=== PATIENT | male | born 1975 | race Caucasian/White ===

== ENCOUNTER 2019-11-25 17:42 | Inpatient (IN) ==
[2019-11-25] MEDS ORDERED: NS 1,000 ML IV ONE ×2 (17:57→21:05)
[2019-11-25] MEDS ORDERED: NS 500 ML IV ONE (17:57)
--- NOTE | 2019-11-25 18:04 | PROVIDER DOCUMENTATION ---
HPI-General Adult - General Chief Complaint: Weakness Stated Complaint: WEAKNESS Time Seen by Provider: 11/25/19 17:57 Source: patient, EMS Allergies/Adverse Reactions: Patient Allergies Allergy/AdvReac Type Severity Reaction Status Date / Time No Known Allergies Allergy Verified 11/25/19 18:53 Home Medications: Home Medication List Medication Instructions Recorded Confirmed Last Taken Type Unobtainable [Home Meds 11/25/19 11/25/19 Unknown History Unobtainable] - History of Present Illness -Gen Adult Nature of Presenting Problems: Patient is a 44 year old white male with history of HTN and alcohol abuse, who has been tapering himself off alcohol in past week who arrives by EMS with orthostatic hypotension since this afternoon. Patient was found on the floor at home with systolic bp in 70's complaining of inability to stand up. Denies rectal bleeding, melena, chest pain, fever, or sob. Review of Systems - Adult - REVIEW OF SYSTEMS - ADULT Constitutional: denies: chills, fever Eyes: reports: other (clear) Cardiovascular: denies: chest pain Respiratory: denies: shortness of breath Gastrointestinal: denies: abdominal pain, diarrhea, nausea, vomiting Genitourinary: denies: dysuria Musculoskeletal: reports: see HPI Integumentary: reports: see HPI Neurological: reports: see HPI Psychiatric: reports: depression Endocrine: reports: no symptoms reported Hematologic/Lymphatic: reports: no symptoms reported Allergic/Immunologic: reports: no symptoms reported Past History - Adult - PAST MEDICAL HISTORY-ADULT Review of Records: reports: Old Records Reviewed, Nursing Assessment Review, Medications Reviewed, Social history reviewed & non-contributory. Major Childhood Illnesses: reports: denies history Cardiovascular: reports: denies history Respiratory: reports: denies history Gastrointestinal: reports: denies history Genitourinary: reports: denies history Musculoskeletal: reports: denies history Neurological: reports: denies history Psychiatric: reports: anxiety Endocrine/Immune: reports: denies history - FAMILY HISTORY Family History: reviewed, not pertinent - SOCIAL HISTORY Alcohol Use Frequency: every day (quit over 1 week ago) Living Situation: family Physical Exam-General - CONSTITUTIONAL General Appearance: alert, other (dissheveled) - EYES Eyes: PERRL/EOMI, other (clear) - HEAD, EARS, NOSE, MOUTH & THROAT HENMT: normocephalic/atraumatic, other (clear) - NECK Neck: supple - RESPIRATORY Respiratory: lungs clear, no respiratory distress, no accessory muscle use - CARDIOVASCULAR Cardiovascular: regular rate, rhythm - GASTROINTESTINAL (ABDOMEN) Abdominal Exam: non tender, soft - MUSCULOSKELETAL Back Exam: no CVA tenderness, other (numerous old bruising over upper and lower back) Extremity: normal range of motion, non-tender, other (muscle atrophy) - SKIN Integumentary: warm/dry - NEUROLOGIC Neurologic: no motor/sensory deficits - PSYCHIATRIC Psych/Mental Status: oriented x 3, anxious Progress - PLAN OF CARE/RESULTS Progress/Plan/Lab Results: Vital Signs - 8 hr 11/25/19 17:46 Pulse Rate 89 Respiratory Rate 19 Blood Pressure 90/68 O2 Sat by Pulse Oximetry 100 Orders Category Date Time Status Cardiac Monitoring DIRECTED Care 11/25/19 17:59 Ordered Intake and Output-Strict ORDERED Care 11/25/19 17:57 Ordered Repeat Vital Signs .Blood Pressure Care 11/25/19 17:57 Ordered Repeat Vital Signs .Heart Rate Care 11/25/19 17:57 Ordered Repeat Vital Signs .Oxygen Saturation Care 11/25/19 17:57 Ordered Repeat Vital Signs .Respiratory Rate Care 11/25/19 17:57 Ordered Repeat Vital Signs .Temp Care 11/25/19 17:57 Ordered CHEST-PORTABLE [RAD] Stat Exams 11/25/19 18:01 Ordered ALCOHOL BLOOD Stat Lab 11/25/19 17:59 Uncollected BLOOD CULTURE [BLDCUL] Stat Lab 11/25/19 17:58 Uncollected CBC WITH ELECTRONIC DIFF [HEME] Stat Lab 11/25/19 17:58 Ordered CMP [COMPREHENSIVE METABOLIC PANEL] [CHEM] Stat Lab 11/25/19 18:02 Uncollected LACTATE, PLASMA [CHEM] Timed Lab 11/25/19 17:57 Uncollected PT [PROTIME WITH INR] [COAG] Stat Lab 11/25/19 18:00 Uncollected Stool [OCCULT BLOOD SCREENING] [STOOL] Stat Lab 11/25/19 17:59 Uncollected TROPONIN T HIGH SENSITIVITY Stat Lab 11/25/19 18:00 Uncollected TYPE & SCREEN [BBK] Stat Lab 11/25/19 17:59 Uncollected URINALYSIS W/POSS RFLX CULT [URINALYSIS] Stat Lab 11/25/19 18:00 Uncollected URINE DRUG SCREEN PL Stat Lab 11/25/19 17:58 Uncollected 0.9% Sodium Chloride Inj [Ns] 1,000 ml Med 11/25/19 17:57 Ordered IV As Directed 0.9% Sodium Chloride Inj [Ns] 500 ml Med 11/25/19 17:57 Ordered IV 999 mls/hr EKG [EKG] Stat Ther 11/25/19 17:58 Ordered Result Diagrams: 11/25/19 17:54 11/25/19 17:54 - XRAY 1 XRAY Study: Chest XRAY Interpretation: NAD - CT/MRI 1 CT Study: Abdomen, Pelvis, Thorax CT Results: NAD - CONSULTS/PCP/HOSPITALIST Notification #1 *Consult/PCP/Hospitalist*: Dr. Ortiz, hospitalist Time Discussed: 20:50 Consult Disposition: Admit Departure - Departure Date of Disposition Decision: 11/25/19 Time of Disposition Decision: 20:56 DIAGNOSIS: Hyponatremia, Volume depletion Malnutrition Qualifiers: Malnutrition type: unspecified type Qualified Code(s): E46 - Unspecified protein-calorie malnutrition Hypotension Qualifiers: Hypotension type: unspecified hypotension type Qualified Code(s): I95.9 - Hyp otension, unspecified Hypothermia Qualifiers: Encounter type: initial encounter Qualified Code(s): T68.XXXA - Hypothermia, initial encounter Contusion, back Qualifiers: Encounter type: initial encounter Laterality: unspecified laterality Qualified Code(s): S20.229A - Contusion of unspecified back wall of thorax, initial encounter Disposition: ADMITTED INPATIENT 09 Certified Medical Emergency: Emergent Condition: Stable Referrals and Follow-Ups: None,PCP [Primary Care Provider] - - Critical Care Note This patient required my direct & personal management of CC.: No Attestation - Physician/ ESE Attestation Patient care was provided by Advanced Practice Provider:: No The physician spent face to face time with patient:: Yes Advanced Practice Provider documentation review:: Supervising physician onsite and consulted in the evaluation and care of this patient. The physician did have a face to face encounter with the patient.
[2019-11-25 18:06] LABS: BASO# 0.01 X1000 (0.0-0.2); BASO% 0.2 % (0.0-0.8); HEMOGLOBIN 9.7 g/dL (14.0-18.0); IMM GRAN# 0.31 X1000 (0.0-0.04); IMM GRAN% 5.1 % (0.0-0.5); LYMPH# 1.16 X1000 (1.2-3.4); MCHC 34.6 g/dL (33-37); MCV 86.7 FL (81-99); MONO# 0.78 X1000 (0.11-0.59); MONO% 12.8 % (1.7-9.3); MPV 12.5 FL (7.4-10.4); NEUT# 3.85 X1000 (1.4-6.5); NEUT% 62.9 % (42.2-75.2); PLT 142 X1000 (130-400); RBC 3.23 XMIL (4.7-6.1); RDW 12.7 % (11.5-14.5); WBC 6.11 X1000 (4.8-10.8)
[2019-11-25 18:32] LABS: OCCULT BLOOD 1 NEGATIVE (NEGATIVE)
[2019-11-25 18:46] LABS: INR 1.16; PROTIME 15.4 Seconds (11.0-16.0)
[2019-11-25 18:47] LABS: ESTIMATED GFR > 60
--- NOTE | 2019-11-25 18:49 | Diag Imaging Result Doc PS360 ---
EXAM: CHEST-PORTABLE 11/25/2019 HISTORY: hypotension TECHNIQUE: Erect AP chest COMMENT: There is no evidence of acute cardiac or pulmonary disease. There may be COPD. IMPRESSION: No acute disease. Electronically signed by Benjamin Vazquez 11/25/2019 6:46 PM
[2019-11-25 19:01] LABS: AGAP 21; ALBUMIN 3.1 g/dL (3.5-5.0); ALKALINE PHOSPHATASE 49 U/L (32-122); BUN 18 mg/dL (8-22); CALCIUM 8.5 mg/dL (8.8-10.2); CHLORIDE 87 mmol/L (98-107); COSMO 252; GLUCOSE 148 mg/dL (70-104); GOT 33 U/L (10-34); GPT 25 U/L (10-44); POTASSIUM 3.6 mmol/L (3.5-5.1); SODIUM 123 mmol/L (136-145); TCO2 15 mmol/L (25-35); TOTAL PROTEIN 5.2 g/dL (6.3-8.3)
[2019-11-25] MEDS ORDERED: THIAMINE 100 MG in NS 50 ML IV ONE (19:10)
[2019-11-25 19:21] LABS: URINE SOURCE CLEAN CATCH
[2019-11-25 19:21] LABS: CK INDEX 2.6 (0.0-2.5); CK-MB 7.78 ng/mL (0.0-5.0)
[2019-11-25 19:31] LABS: BILIRUBIN URINE SMALL (NEGATIVE); BLOOD URINE NEGATIVE (NEGATIVE); COLOR ORANGE; GLUCOSE URINE NEGATIVE (NEGATIVE); KETONE URINE TRACE mg/dL (NEGATIVE); LEUKOCYTES URINE NEGATIVE (NEGATIVE); NITRITE URINE NEGATIVE (NEGATIVE); PROTEIN URINE TRACE mg/dL (NEGATIVE); SP GRAVITY URINE 1.023; TURBIDITY URINE HAZY (CLEAR); UROBILINOGEN URINE 3 mg/dL (NORMAL)
[2019-11-25 19:42] LABS: UR AMPHETAMINES QUAL NONE DETECTED (NONE DETECT); UR BARBITUATES QUAL NONE DETECTED (NONE DETECT); UR BENZODIAZEPIN QUAL NONE DETECTED (NONE DETECT); UR CANNABINOIDS QUAL NONE DETECTED (NONE DETECT); UR COCAINE QUAL NONE DETECTED (NONE DETECT); UR METHADONE QUAL NONE DETECTED (NONE DETECT); UR METHAMPHETAMINE QUAL NONE DETECTED (NONE DETECT); UR OPIATES QUAL NONE DETECTED (NONE DETECT); UR OXYCODONE QUAL NONE DETECTED (NONE DETECT); UR PCP QUAL NONE DETECTED (NONE DETECT); UR PROPOXYPHENE QUAL NONE DETECTED (NONE DETECT); UR TCA QUAL NONE DETECTED (NONE DETECT)
[2019-11-25 19:57] LABS: URINE WBC <10 /HPF (<10)
[2019-11-25 19:58] LABS: UR EPITHELIAL CELLS <10 /HPF (<10); URINE BACTERIA 1+ /HPF; URINE CRYSTALS CA OXALATE PRESENT; URINE SMALL ROUND CELLS NONE SEEN; URINE YEAST NONE SEEN
--- NOTE | 2019-11-25 20:19 | Diag Imaging Result Doc PS360 ---
EXAM: CT THORAX/ABD/PELVIS W/CON 11/25/2019 HISTORY: fall TECHNIQUE: This exam was performed using automated exposure control, adjustment of mA or kV according to patient size, and/or use of iterative reconstruction technique. COMMENT: There are no previous studies. Thorax: There are no filling defects the pulmonary arteries. There are no abnormal fluid collections. The aorta is normal in appearance. There is apical pleural thickening and posterior pleural nodularity of the upper lobes bilaterally. There is no evidence of pneumothorax or pleural fluid collection. There is no evidence of acute bony abnormality. ABDOMEN: The liver, spleen, adrenal glands, pancreas, and kidneys are within normal limits. The gallbladder is clear. There is a fecalith in the appendix. There is no evidence of periappendiceal inflammation. There is no evidence of bowel obstruction. The aorta is not distended and there is no evidence of significant adenopathy. Pelvis: The urinary bladder is not distended. There is no evidence of free fluid. There are scattered bone islands in the femoral heads and pelvis. There is no evidence of acute bony abnormality. IMPRESSION: No evidence of acute disease. Electronically signed by Benjamin Vazquez 11/25/2019 8:16 PM
[2019-11-25] MEDS ORDERED: M.V.I.-12 10 ML, FOLIC ACID 1 MG, MAGNESIUM SULFATE 1 GM, THIAMINE 100 MG in NS 1,000 ML IV ONE (21:01)
--- NOTE | 2019-11-25 21:47 | EKG Report ---
Test Performed on : 11/25/2019 6:28:43 PM Test Reason : pain Blood Pressure : / mmHG Vent. Rate : 067 BPM Atrial Rate : 119 BPM P-R Int : 000 ms QRS Dur : 086 ms QT Int : 478 ms P-R-T Axes : 000 081 078 degrees QTc Int : [address] & T wave abnormality, consider anterolateral ischemia Prolonged QT Abnormal ECG No previous ECGs available Unconfirmed Result
[2019-11-25 23:38] LABS: ESTIMATED GFR > 60
[2019-11-25 23:39] LABS: AGAP 17; ALBUMIN 2.2 g/dL (3.5-5.0); ALKALINE PHOSPHATASE 37 U/L (32-122); BUN 17 mg/dL (8-22); CALCIUM 7.6 mg/dL (8.8-10.2); CHLORIDE 93 mmol/L (98-107); COSMO 248; CREATININE 0.8 mg/dL (0.7-1.2); GLUCOSE 105 mg/dL (70-104); GOT 31 U/L (10-34); GPT 20 U/L (10-44); POTASSIUM 3.6 mmol/L (3.5-5.1); SODIUM 122 mmol/L (136-145); TCO2 12 mmol/L (25-35); TOTAL PROTEIN 4.5 g/dL (6.3-8.3)
[2019-11-26] MEDS ORDERED: SOLU-CORTEF IV ONE (00:10)
[2019-11-26] MEDS ORDERED: ROCEPHIN 1 GM in NS 50 ML IV ONE (00:38)
[2019-11-26] MEDS ORDERED: NS 1,000 ML IV ONE ×2 (00:39→03:00)
[2019-11-26] MEDS ORDERED: NS 500 ML IV ONE (00:39)
[2019-11-26] MEDS ORDERED: LEVOPHED 8 MG in D5 1/2 NS 250 ML IV SCH ×2 (00:45→01:15)
[2019-11-26] MEDS ORDERED: VANCOMYCIN 1 GM/NS 1 GM/250 ML IVPB IV ONE (01:17)
[2019-11-26] MEDS ORDERED: VANCOMYCIN IV PER PHARMACY MISC SCH (05:30)
[2019-11-26] MEDS ORDERED: THIAMINE 100 MG in NS 50 ML IV SCH (05:45)
[2019-11-26] MEDS ORDERED: FOLIC ACID 1 MG in NS 50 ML IV SCH (05:45)
--- NOTE | 2019-11-26 05:47 | HISTORY AND PHYSICAL ---
CHIEF COMPLAINT: Weakness. HISTORY OF PRESENT ILLNESS: Mr. Samy Marino is a 42-year-old male who has a history of hypertension as well as chronic alcoholism. He presents to the hospital because of progressive weakness. The patient is a chronic alcoholic, and his last drink was about 2 days ago. The patient describes poor appetite. He presented to the [facility] where he was found to be hypotensive, and required pressors and IV fluids. As such, he has been admitted to the intensive care unit here at [facility]. PAST MEDICAL HISTORY: His past medical history is notable for hypertension. SOCIAL HISTORY: He drinks alcohol and chews tobacco. No drug use. FAMILY HISTORY: Positive for drug use. ALLERGIES: No known drug allergies. PAST SURGICAL HISTORY: Unremarkable. MEDICATIONS: The patient takes antihypertensive medications. He does not know the name. REVIEW OF SYSTEMS: Constitutional: No fever. 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 Eyes: Blurred vision. ENT: No sinus or hearing loss. Cardiovascular: No chest pain. Respiratory: He has cough. GI: No nausea, vomiting, or abdominal pain. : No dysuria. Dermatology: No skin lesions. Hematology: No bleeding problems. Musculoskeletal: He has joint pains. Psychiatric: He has anxiety and depression. Endocrinology: No thyroid disease or diabetes. PHYSICAL EXAMINATION: VITAL SIGNS: Temperature 100.3 degrees, pulse 86, respiratory 24, blood pressure 139/93, and oxygen saturation 100%. HEENT: Atraumatic normocephalic. He is anicteric. Extraocular movements intact. No oral lesions noted. NECK: No lymphadenopathy or thyromegaly. CARDIOVASCULAR: S1, S2. RESPIRATORY: He has evidence of good air entry bilaterally. ABDOMEN: Soft. Nontender. No masses felt. EXTREMITIES: No evidence of edema. CENTRAL NERVOUS SYSTEM: No obvious focal deficit noted. LABORATORY DATA: WBC is 6.1, hematocrit 28 with a platelet count of 142,000. INR is 1.16. Sodium 122, potassium 3.6, chloride 93, bicarb 12, BUN is 17, and creatinine 0.8. Bilirubin is 2.2. Glucose 105. ASSESSMENT AND PLAN: 1. Septic shock. We will maintain patient on intravenous fluids and also pressors. We will also obtain cultures including blood and urine cultures and start patient on empiric antibiotics. 2. Hyponatremia. Maintain patient on intravenous fluids as well as fluid restriction. Check urine chemistry, cortisol level and TSH level. Closely follow up on patient's sodium level. 3. Anemia. Check iron studies, B12, and folate level. 4. Alcoholism. Maintain patient on delirium tremens prophylaxis. Check magnesium and phos level. Replace those if needed. Maintain patient on thiamine, and also folic acid as well as multivitamin. 5. Deep vein thrombosis prophylaxis. Sequential compression devices. 6. Gastrointestinal prophylaxis. Proton pump inhibitor. cc: Bill Cheney MD MTDD
[2019-11-26] MEDS: ZOSYN 3.375 GM in NS 50 ML IV SCH ×3 (06:13→17:21)
[2019-11-26] MEDS: PROTONIX IV SCH (06:13)
[2019-11-26] MEDS: SODIUM CHLORIDE 0.9% INJ SCH (06:13)
[2019-11-26] MEDS ORDERED: VANCOMYCIN 800 MG in NS 250 ML IV ONE (06:45)
[2019-11-26 08:05] LABS: BASO# 0.01 X1000 (0.0-0.2); BASO% 0.2 % (0.0-0.8); HEMATOCRIT 25.7 % (42.0-52.0); HEMOGLOBIN 8.9 g/dL (14.0-18.0); IMM GRAN# 0.14 X1000 (0.0-0.04); IMM GRAN% 2.6 % (0.0-0.5); LYMPH# 0.52 X1000 (1.2-3.4); LYMPH% 9.7 % (20.5-51.1); MCH 31.8 PG (27-31); MCHC 34.6 g/dL (33-37); MCV 91.8 FL (81-99); MONO# 0.41 X1000 (0.11-0.59); MONO% 7.6 % (1.7-9.3); MPV 13.2 FL (7.4-10.4); NEUT# 4.29 X1000 (1.4-6.5); NEUT% 79.9 % (42.2-75.2); PLT 115 X1000 (130-400); RDW 12.9 % (11.5-14.5); WBC 5.37 X1000 (4.8-10.8)
--- NOTE | 2019-11-26 08:57 | PROGRESS NOTE ---
DATE: 11/26/2019 SUBJECTIVE: This patient is completely awake. He is oriented. As per the patient, he has been drinking. He is an alcoholic, and he states that he was lying on the floor and he actually ended up spending the night on the floor before coming to the hospital. He has been 3 times in a rehab center and a couple of times as an outpatient. He is willing to stop it, but it has been difficult for him. As per the patient, on the other hand, he is adopted, and he just found out that he has a family history of alcohol abuse and drug use. He seems to be stable, but he is having generalized shakiness. He has been placed on Librium, which I will continue, but I will increase the frequency. I will also add Ativan as needed for agitation and/or withdrawal symptoms. I will continue with his banana bag. Blood culture negative. Blood pressure has been stable, on the low side though. OBJECTIVE: Vital Signs: Temperature 100.3 at 3:30 a.m., pulse 76, respiratory rate 110/64, oxygen saturation 97% on room air. HEENT: Head normocephalic. No trauma. PERRLA. Neck: Supple no JVD. No masses. Central trachea. Chest: Clear to auscultation. No wheezing. No rales. Abdomen: Soft. Some tenderness to palpation at the level of the epigastric area. Extremities: No edema, no clubbing, no cyanosis. He has multiple bruises, mostly at the level of the lower extremities. Neurological: The patient is sleepy but arousable. He is answering my questions. He is oriented. He is following commands. He does have generalized tremors, especially upper extremities. LABORATORY: WBC 5.3, hemoglobin 8.9, hematocrit 25.7, platelets 115,000. Pending CMP. ASSESSMENT AND PLAN: 1. Initially admitted due to septic shock, but I do not have any source of infection. He is not on pressors. I will continue intravenous fluids, and I will keep this patient on intravenous antibiotics for 1 more day to see how he does. Blood culture so far negative. Chest, abdomen, and pelvis CT scan negative for any acute process. I checked his skin, and I did not see any source of infection, but he does have small lesions, red lesions, but no secretion, and multiple bruises. I will monitor for now. I do believe everything is related to alcohol abuse. 2. Hyponatremia, probably this is chronic. We will get a TSH tomorrow. I will continue with fluid resuscitation. I will continue also with a banana bag. 3. Alcohol abuse/alcoholism. Continue with a banana bag on a daily basis. Continue with Librium, which I have increased the dose from 3 times a day to 4 times a day. I will add Ativan as needed as well. I do believe he can eat. He has been placed on a regular diet. 4. Anemia. We will do the anemia workup. 5. Deep vein thrombosis prophylaxis with sequential compression devices. 6. Hyponatremia, probably this is chronic. Continue with fluid resuscitation. 7. Mild rhabdomyolysis, likely because he was dehydrated. I will check a new CK level in the morning. As per the patient, he spent the whole night and probably more than that on the floor prior to admission. He has multiple bruises as well. 8. Protein-calorie malnutrition, moderate to severe. We will continue with his diet. CRITICAL CARE TIME: 35 minutes. cc: Gilbert Thomson MD
[2019-11-26] MEDS ORDERED: M.V.I.-12 10 ML, FOLIC ACID 1 MG, MAGNESIUM SULFATE 1 GM, THIAMINE 100 MG in NS 1,000 ML IV SCH (09:00)
[2019-11-26] MEDS ORDERED: LIBRIUM PO SCH ×2 (09:00)
[2019-11-26] MEDS: LIBRIUM PO SCH ×3 (09:08→23:37)
[2019-11-26] MEDS: M.V.I.-12 10 ML, FOLIC ACID 1 MG, MAGNESIUM SULFATE 1 GM, THIAMINE 100 MG in NS 1,000 ML IV SCH (09:08)
[2019-11-26 09:35] LABS: ESTIMATED GFR > 60
[2019-11-26 09:53] LABS: AGAP 18; ALBUMIN 2.4 g/dL (3.5-5.0); ALKALINE PHOSPHATASE 38 U/L (32-122); BUN 14 mg/dL (8-22); CALCIUM 7.6 mg/dL (8.8-10.2); CHLORIDE 96 mmol/L (98-107); COSMO 254; GLUCOSE 106 mg/dL (70-104); GOT 33 U/L (10-34); GPT 21 U/L (10-44); POTASSIUM 3.9 mmol/L (3.5-5.1); SODIUM 126 mmol/L (136-145); TCO2 12 mmol/L (25-35); TOTAL BILIRUBIN 2.12 mg/dL (0.20-1.00); TOTAL PROTEIN 4.8 g/dL (6.3-8.3)
[2019-11-26 10:07] LABS: BANDS 6 % (0-1); LARGE PLATELETS 1+; LYMPHS 4 % (21-51); MONO 2 % (1-9); SEGS 86 % (42-75)
[2019-11-26] MEDS: VANCOMYCIN 900 MG in NS 250 ML IV SCH (14:15)
--- NOTE | 2019-11-26 17:05 | Diag Imaging Result Doc PS360 ---
EXAM: US GB < RUQ (LIMITED) INDICATION: alcohol abuse COMPARISON: None. 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 It is possibly contracted. The common bile duct is normal in diameter. The liver is grossly normal in echotexture. No discrete hepatic mass is identified. The pancreas is obscured. The aorta and IVC are grossly unremarkable. The right kidney is grossly unremarkable. IMPRESSION: Nonvisualization of the gallbladder, likely contracted. Unremarkable right upper quadrant ultrasound, otherwise. Electronically signed by Hayes Tran 11/26/2019 5:03 PM
[2019-11-26] MEDS: ATIVAN IV PRN (17:41)
[2019-11-26] MEDS: NS 1,000 ML IV SCH (19:22)
[2019-11-26] MEDS: LEVOPHED 8 MG in D5 1/2 NS 250 ML IV SCH (21:13)
[2019-11-26 23:36] LABS: URINE SOURCE CATH
[2019-11-26 23:55] LABS: BILIRUBIN URINE NEGATIVE (NEGATIVE); BLOOD URINE NEGATIVE (NEGATIVE); COLOR YELLOW; GLUCOSE URINE NEGATIVE (NEGATIVE); KETONE URINE 10 mg/dL (NEGATIVE); LEUKOCYTES URINE NEGATIVE (NEGATIVE); NITRITE URINE NEGATIVE (NEGATIVE); PROTEIN URINE NEGATIVE (NEGATIVE); SP GRAVITY URINE 1.027; TURBIDITY URINE CLEAR (CLEAR); UROBILINOGEN URINE NORMAL (NORMAL)
[2019-11-27] MEDS: ZOSYN 3.375 GM in NS 50 ML IV SCH ×5 (00:03→23:20)
[2019-11-27 00:09] LABS: UR EPITHELIAL CELLS <10 /HPF (<10); URINE BACTERIA NEGATIVE /HPF; URINE RBC <10 /HPF (<10); URINE WBC <10 /HPF (<10)
[2019-11-27] MEDS: VANCOMYCIN 900 MG in NS 250 ML IV SCH ×2 (02:18→14:18)
[2019-11-27] MEDS: LIBRIUM PO SCH ×4 (02:30→20:20)
[2019-11-27] MEDS: PROTONIX IV SCH (04:45)
[2019-11-27] MEDS: NS 1,000 ML IV SCH ×2 (04:45→14:14)
[2019-11-27] MEDS: SODIUM CHLORIDE 0.9% INJ SCH (04:45)
--- NOTE | 2019-11-27 07:39 | PROGRESS NOTE ---
DATE: 11/27/2019 SUBJECTIVE: The patient is sleepy, but arousable. As per the nurse, he was really lethargic during the night, but he seems to be waking up a little bit better today. He was able to say his name, date of . He was oriented to place and time, but he is really sleepy. He has been placed on a diet, but he seems to be eating just a little a little bit of it. I will continue with that. Pending laboratory at this moment. During the night his blood pressure dropped to the 70s and 80s, so he was placed on vasopressors, which I will continue. OBJECTIVE: Vital Signs: Temperature 98.9 degrees, respiratory rate 20, blood pressure 113/71, oxygen saturation 94% on room air. HEENT: Head normocephalic, no trauma. PERRLA. Neck: Supple no JVD. No masses. Central trachea. Chest: Clear to auscultation. No wheezing. No rales. Abdomen: Soft. Some tenderness to palpation at the level of the epigastric area and right upper quadrant. Extremities: No edema, no clubbing, no cyanosis. He has multiple bruises, mostly at the level of the lower extremities. Neurological: The patient is sleepy, but arousable. He is answering most of my questions. He is oriented. He is following commands, but he is really sleepy, and as per the nurse's report he was really lethargic during the night. He does have generalized tremors, especially the upper extremities. LABORATORY: Pending lab work at this moment. ASSESSMENT AND PLAN: 1. Admitted due to septic shock. He has been placed on vasopressors during the night, even though I do not have a clear source of infection. I will continue with antibiotics. Blood cultures are negative so far. Influenza A and B are negative. Chest, abdomen, and pelvis CT scan did not show any evidence of acute disease. I will continue to monitor this patient in the intensive care unit. I will continue with intravenous fluid fluids, pending lab work. 2. Hyponatremia. Probably this is chronic. Pending TSH. Continue with intravenous fluids. Continue with also banana bag. 3. Alcohol abuse, alcoholism. Continue with banana bag on a daily basis. Continue with Librium 4 times a day and Ativan as needed. He has generalized tremors, mostly at the level of the upper extremities. He seems to be sleepy, but arousable. 4. Deep vein thrombosis prophylaxis with sequential compression devices. 5. Mild rhabdomyolysis, likely due to dehydration. Also, he has multiple bruises at the level of the lower extremities, so it could be multifactorial. For now, we will continue with intravenous fluids, and I will wait for the for the lab work results. 6. Protein-calorie malnutrition, moderate to severe. We will continue with his diet. CRITICAL CARE TIME: 35 minutes. cc: Gilbert Thomson MD
[2019-11-27 08:02] LABS: EOS# 0.01 X1000 (0.0-0.7); EOS% 0.2 % (0.0-10.0); HEMATOCRIT 21.4 % (42.0-52.0); IMM GRAN# 0.13 X1000 (0.0-0.04); IMM GRAN% 2.8 % (0.0-0.5); LYMPH# 0.93 X1000 (1.2-3.4); LYMPH% 20.2 % (20.5-51.1); MCH 30.7 PG (27-31); MCHC 32.7 g/dL (33-37); MCV 93.9 FL (81-99); MONO# 0.39 X1000 (0.11-0.59); MONO% 8.5 % (1.7-9.3); MPV 12.7 FL (7.4-10.4); NEUT# 3.15 X1000 (1.4-6.5); NEUT% 68.3 % (42.2-75.2); PLT 94 X1000 (130-400); RBC 2.28 XMIL (4.7-6.1); RDW 13.1 % (11.5-14.5); WBC 4.61 X1000 (4.8-10.8)
[2019-11-27 08:04] LABS: AGAP 9; ALB/GLOB RATIO 1.1; ALKALINE PHOSPHATASE 35 U/L (32-122); BUN 6 mg/dL (8-22); CALCIUM 7.1 mg/dL (8.8-10.2); CHLORIDE 106 mmol/L (98-107); CK PROFILE 163 U/L (24-204); COSMO 265; CREATININE 0.8 mg/dL (0.7-1.2); ESTIMATED GFR > 60; GLUCOSE 115 mg/dL (70-104); GOT 43 U/L (10-34); GPT 26 U/L (10-44); POTASSIUM 2.9 mmol/L (3.5-5.1); SODIUM 133 mmol/L (136-145); TCO2 18 mmol/L (25-35); TOTAL BILIRUBIN 1.57 mg/dL (0.20-1.00); TOTAL PROTEIN 3.9 g/dL (6.3-8.3)
[2019-11-27 08:45] LABS: FERRITIN 366 ng/mL (30-400)
[2019-11-27 08:53] LABS: PHOSPHORUS 2.6 mg/dL (2.7-4.5)
[2019-11-27] MEDS: KLOR-CON PO SCH ×2 (09:06→20:19)
[2019-11-27] MEDS: M.V.I.-12 10 ML, FOLIC ACID 1 MG, MAGNESIUM SULFATE 1 GM, THIAMINE 100 MG in NS 1,000 ML IV SCH (09:06)
[2019-11-27] MEDS: LEVOPHED 8 MG in D5 1/2 NS 250 ML IV SCH (22:57)
[2019-11-28] MEDS: LIBRIUM PO SCH ×4 (02:57→19:36)
[2019-11-28 03:17] LABS: INR 1.25; PROTIME 15.9 Seconds (11.0-16.0)
[2019-11-28 03:18] LABS: PTT 31.4 Seconds (22.3-41.8)
[2019-11-28 03:22] LABS: BASO# 0.01 X1000 (0.0-0.2); BASO% 0.3 % (0.0-0.8); EOS# 0.01 X1000 (0.0-0.7); EOS% 0.3 % (0.0-10.0); HEMATOCRIT 21.6 % (42.0-52.0); HEMOGLOBIN 6.8 g/dL (14.0-18.0); IMM GRAN# 0.11 X1000 (0.0-0.04); IMM GRAN% 3.4 % (0.0-0.5); LYMPH# 1.07 X1000 (1.2-3.4); LYMPH% 33.4 % (20.5-51.1); MCH 30.2 PG (27-31); MCHC 31.5 g/dL (33-37); MONO# 0.24 X1000 (0.11-0.59); MONO% 7.5 % (1.7-9.3); MPV 11.7 FL (7.4-10.4); NEUT# 1.76 X1000 (1.4-6.5); NEUT% 55.1 % (42.2-75.2); PLT 101 X1000 (130-400); RBC 2.25 XMIL (4.7-6.1); RDW 13.6 % (11.5-14.5)
[2019-11-28 04:08] LABS: AGAP 9; ALB/GLOB RATIO 1.3; ALKALINE PHOSPHATASE 38 U/L (32-122); BUN 3 mg/dL (8-22); CHLORIDE 109 mmol/L (98-107); CK PROFILE 122 U/L (24-204); COSMO 270; CREATININE 0.7 mg/dL (0.7-1.2); ESTIMATED GFR > 60; GLUCOSE 124 mg/dL (70-104); GOT 39 U/L (10-34); GPT 25 U/L (10-44); MAGNESIUM 1.9 mg/dL (1.5-2.7); PHOSPHORUS 1.9 mg/dL (2.7-4.5); POTASSIUM 3.6 mmol/L (3.5-5.1); SODIUM 136 mmol/L (136-145); TCO2 18 mmol/L (25-35); TOTAL PROTEIN 3.6 g/dL (6.3-8.3)
[2019-11-28 04:15] LABS: CALCIUM 6.8 mg/dL (8.8-10.2)
[2019-11-28] MEDS ORDERED: CALCIUM GLUCONATE 1 GM in NS 50 ML IV ONE (04:32)
[2019-11-28] MEDS ORDERED: VANCOMYCIN 1,200 MG in NS 250 ML IV SCH (05:00)
[2019-11-28] MEDS: PROTONIX IV SCH (05:34)
[2019-11-28] MEDS: NS 1,000 ML IV SCH ×4 (05:34→19:36)
[2019-11-28] MEDS: ZOSYN 3.375 GM in NS 50 ML IV SCH (05:43)
[2019-11-28] MEDS ORDERED: NS 500 ML IV ONE (06:57)
[2019-11-28] MEDS ORDERED: POTASSIUM PHOSPHATE 21 MMOL in NS 250 ML IV ONE (06:58)
--- NOTE | 2019-11-28 08:34 | PROGRESS NOTE ---
DATE: 11/28/2019 SUBJECTIVE: This patient seems to be much better today. He is awake. He is oriented x3. He is still having generalized tremors, mostly at the level of the upper extremities, but he does not feel that he is going to withdraw today. Yesterday though he was having some withdrawal symptoms, and he was more sleepy, and apparently, he was lethargic during the night. I think he is doing better. His hemoglobin dropped to 6.8, and I will give him 1 unit of PRBC. This has been discussed with the patient. I will replace his electrolytes as well. I will ask Physical Therapy and Occupational Therapy to evaluate this patient. Probably, this patient needs to go to a detox center if he agrees with that, but in the meantime, I will continue with Librium and Ativan as needed, as well as the banana bag on a daily basis. I will continue also with the IV fluids for now. I will stop the antibiotics. I do not have any source of infection. OBJECTIVE: Vital Signs: Temperature 99.3 degrees, pulse 91, respiratory rate 11, blood pressure 99/66, oxygen saturation 100% on room air. HEENT: Head normocephalic, no trauma, PERRLA. Neck: Supple. No JVD. No masses. Central trachea. Chest: Clear to auscultation. No wheezing. No rales. Abdomen: Soft. Some tenderness to palpation at the level of the epigastric area and right upper quadrant. Extremities: No edema, no clubbing, no cyanosis. He has multiple bruises mostly at the level of the lower extremities. Neurological: The patient is awake, alert. He is answering my questions. He has generalized tremors, but mostly at the level of the upper extremities. LABORATORY: WBC 3.2, hemoglobin 6.8, hematocrit 25.6, platelets 101,000. Sodium 136, potassium 3.6, chloride 109, bicarbonate 18, BUN 3, creatinine 0.7, glucose 124, calcium 6.8, phosphorus 1.9, magnesium 1.9, albumin 2. ASSESSMENT AND PLAN: 1. Admitted for possible septic shock, and he was placed on vasopressors. I believe he was severely dehydrated. I do not have any source of infection. I have stopped the antibiotics. Chest x-ray, CT of the abdomen and pelvis are negative. Influenza A and B are negative. I will continue with intravenous fluids and I will transfer this patient to the floor. 2. Likely severe dehydration with orthostatic hypotension. Apparently, this patient was found on the floor at home and the systolic blood pressure was in the 70s with inability to stand up. I do not think this patient was having a sepsis or septic shock. I do believe this is a combination off alcohol abuse and dehydration. We will monitor. He seems to be better, but he needs to stop drinking completely. 3. Hyponatremia, resolved, likely due to severe dehydration. 4. Electrolyte imbalance including hypokalemia and hypophosphatemia. Potassium level is normal today. I will replace the phosphorus. I will keep an eye on the calcium. 5. Anemia, which I believe is multifactorial due to folic deficiency, nutritional. I will give him 1 unit of packed red blood cells today since his hemoglobin is 6.8. 6. Alcohol abuse. This patient has been highly advised against alcohol use. I will continue with daily cessation education. I will continue with Librium, as well as Ativan as needed. He is still having generalized tremors, but I believe he is not having strong signs and symptoms of withdrawal today. 7. Deep vein thrombosis prophylaxis with sequential compression devices. 8. Mild rhabdomyolysis, resolved. 9. Protein-calorie malnutrition, moderate to severe. Continue with the same diet. 10. Generalized weakness and physical deconditioning, probably this is chronic, likely alcohol related. I already asked for Physical Therapy and Occupational Therapy evaluation. cc: Gilbert Thomson MD
[2019-11-28] MEDS: M.V.I.-12 10 ML, FOLIC ACID 1 MG, MAGNESIUM SULFATE 1 GM, THIAMINE 100 MG in NS 1,000 ML IV SCH (09:50)
[2019-11-29] MEDS: LIBRIUM PO SCH ×4 (02:14→23:38)
[2019-11-29] MEDS: SODIUM CHLORIDE 0.9% INJ SCH (06:18)
[2019-11-29] MEDS: NS 1,000 ML IV SCH (06:18)
[2019-11-29] MEDS: PROTONIX IV SCH (06:18)
[2019-11-29 06:39] LABS: BASO# 0.01 X1000 (0.0-0.2); BASO% 0.3 % (0.0-0.8); EOS# 0.02 X1000 (0.0-0.7); EOS% 0.7 % (0.0-10.0); HEMATOCRIT 26.9 % (42.0-52.0); HEMOGLOBIN 8.5 g/dL (14.0-18.0); IMM GRAN# 0.08 X1000 (0.0-0.04); IMM GRAN% 2.8 % (0.0-0.5); LYMPH# 0.96 X1000 (1.2-3.4); LYMPH% 33.4 % (20.5-51.1); MCH 30.4 PG (27-31); MCHC 31.6 g/dL (33-37); MCV 96.1 FL (81-99); MONO% 10.5 % (1.7-9.3); MPV 11.9 FL (7.4-10.4); NEUT% 52.3 % (42.2-75.2); PLT 111 X1000 (130-400); RDW 14.4 % (11.5-14.5); WBC 2.87 X1000 (4.8-10.8)
[2019-11-29 07:19] LABS: AGAP 3; ALBUMIN 2.2 g/dL (3.5-5.0); ALKALINE PHOSPHATASE 71 U/L (32-122); BUN 5 mg/dL (8-22); CALCIUM 7.3 mg/dL (8.8-10.2); CHLORIDE 108 mmol/L (98-107); COSMO 270; CREATININE 0.7 mg/dL (0.7-1.2); ESTIMATED GFR > 60; GLUCOSE 87 mg/dL (70-104); GOT 47 U/L (10-34); GPT 33 U/L (10-44); MAGNESIUM 1.8 mg/dL (1.5-2.7); PHOSPHORUS 2.5 mg/dL (2.7-4.5); POTASSIUM 3.5 mmol/L (3.5-5.1); SODIUM 137 mmol/L (136-145); TCO2 26 mmol/L (25-35); TOTAL BILIRUBIN 1.72 mg/dL (0.20-1.00); TOTAL PROTEIN 4.3 g/dL (6.3-8.3)
[2019-11-29] MEDS: FOLIC ACID PO SCH ×2 (08:25→20:15)
[2019-11-29] MEDS: VITAMIN B-1 PO SCH (08:26)
--- NOTE | 2019-11-29 09:37 | PROGRESS NOTE ---
DATE: 11/29/2019 SUBJECTIVE: This patient is resting comfortably in bed. He is not confused today. He received 1 unit of PRBC yesterday and the hemoglobin improved from 6.8 to 8.5. Blood pressure has been stable, the last one documented is 127/86. I will stop actually his IV fluids since he is hydrated and the kidney function is stable. The CK level normalized, so the rhabdomyolysis is completely resolved. I will continue monitoring his electrolytes. Phosphorus is slightly decreased, so I will monitor for now. I will remove the Olmos catheter and I have requested Physical Therapy and Occupational Therapy to evaluate this patient. On the other hand, I will stop the banana bag and continue with folic acid and thiamine by mouth. OBJECTIVE: Vital Signs: Temperature 98.9 degrees, pulse 82, respiratory rate 13, blood pressure 127/86, oxygen saturation 98 on room air. HEENT: Head normocephalic, no trauma. PERRLA. Neck: Supple. No JVD. No masses. Central trachea. Chest: Clear to auscultation. No wheezing. No rales. Abdomen: Soft. Some tenderness to palpation at the level of the epigastric area and right upper quadrant. Extremities: No edema. No clubbing. No cyanosis. He has multiple bruises, mostly at the level of the lower extremities. Neurological: The patient is awake, he is alert. He is answering my questions. He is still having some generalized tremors, but they seem to be better compared with yesterday. LABORATORY DATA: WBC 2.8, hemoglobin 8.5, hematocrit 26.9, platelets 111,000. Sodium 135, potassium 3.5, chloride 108, bicarbonate 26, BUN 5, creatinine 0.7, glucose 87, calcium 7.3. Magnesium 1.8, phosphorus 2.5. ASSESSMENT AND PLAN: 1. Admitted initially for possible septic shock, but I do not really have a source of infection. For me, this was more related to hypovolemic shock due to severe dehydration. I already stopped the antibiotics. His chest x-ray, CT of the abdomen and pelvis are negative. Influenza A and B are negative as well. His blood pressure normalized. He is not longer dehydrated. He is tolerating p.o. 2. Severe dehydration, with orthostatic hypotension as per #1 initially. Apparently this patient was found on the floor at home and his systolic blood pressure was in the 70s with inability to stand up. 3. Hyponatremia, resolved. Likely due to severe dehydration. 4. Electrolyte abnormality. We will monitor. 5. Anemia, multifactorial, mostly nutritional. Continue to replace the folic acid. He received 1 unit of PRBC yesterday and the hemoglobin improved from 6.8 to 8.5. 6. Alcohol use and abuse. This patient is an alcoholic and he has been having this kind of problem for a very long time. This patient has been highly advised against alcohol use. I had a meeting with the family yesterday and we talked about a possible plan for discharge. I have been talking also to the patient about rehab center versus detox center. Yesterday he told the social work instructor that he wanted to go home but today I talked to him and he seems to understand that he needs to go for rehab, and then he probably needs to go to a place to take care of his drinking problems. 7. Deep vein thrombosis prophylaxis with sequential compression devices. 8. Mild rhabdomyolysis, resolved. 9. Protein calorie malnutrition, moderate to severe. Continue with the same diet. He is tolerating diet really good. 10. Generalized weakness and with physical deconditioning. Likely this is chronic and likely is related to alcohol use. Physical Therapy and Occupational Therapy on board. He has been having probably multiple falls at home. cc: Gilbert Thomson MD
[2019-11-30] MEDS: PROTONIX IV SCH (04:48)
[2019-11-30 05:43] LABS: HEMATOCRIT 26.9 % (42.0-52.0); HEMOGLOBIN 8.6 g/dL (14.0-18.0); MCH 30.9 PG (27-31); MCV 96.8 FL (81-99); MPV 11.5 FL (7.4-10.4); RBC 2.78 XMIL (4.7-6.1); RDW 14.5 % (11.5-14.5); WBC 3.67 X1000 (4.8-10.8)
[2019-11-30 06:11] LABS: AGAP 9; BUN 6 mg/dL (8-22); CALCIUM 8.3 mg/dL (8.8-10.2); CHLORIDE 103 mmol/L (98-107); COSMO 269; CREATININE 0.7 mg/dL (0.7-1.2); ESTIMATED GFR > 60; GLUCOSE 91 mg/dL (70-104); MAGNESIUM 1.5 mg/dL (1.5-2.7); POTASSIUM 3.6 mmol/L (3.5-5.1); SODIUM 136 mmol/L (136-145); TCO2 24 mmol/L (25-35)
[2019-11-30] MEDS ORDERED: MAGNESIUM SULFATE 2 GM/S.W.I. 2 GM/50 ML IVPB IV ONE (06:56)
[2019-11-30] MEDS: VITAMIN B-1 PO SCH (08:30)
[2019-11-30] MEDS: FOLIC ACID PO SCH ×2 (08:30→20:36)
[2019-11-30] MEDS: LIBRIUM PO SCH ×2 (08:34→20:36)
--- NOTE | 2019-11-30 10:22 | PROGRESS NOTE ---
DATE: 11/30/2019 SUBJECTIVE: The patient is resting comfortably in bed. He is not confused. His hemoglobin has been stable after 1 PRBC. He is still having upper extremity shakiness. His magnesium is slightly low, I will replace it. I will decrease the Librium from 3 times a day to twice a day and I will monitor, but he seems to be getting better. Physical Therapy working on this patient. OBJECTIVE: Vital signs: Temperature 97.5 degrees, pulse 93, respiratory rate 18, blood pressure 107/56, oxygen saturation 100% on room air. HEENT: Head normocephalic, no trauma. PERRLA. Neck: Supple. No JVD. No masses. Central trachea. Chest: Clear to auscultation. No wheezing. No rales. Abdomen: Soft. Some tenderness to palpation at the level of the epigastric area and right upper quadrant. Extremities: No edema, no clubbing, no cyanosis. He has multiple bruises, mostly at the level of the lower extremities. Neurological: The patient is awake, he is oriented, his answers are slow. He is still having generalized tremors, mostly at the level of the upper extremities. He is eating fine. LABORATORY DATA: WBC 3.6, hemoglobin 8.6, hematocrit 26.9, platelets 129,000. Sodium 136, potassium 3.6, chloride 103, bicarbonate 24, BUN 6, creatinine 0.7, glucose 91, calcium 8.3. Magnesium 1.5, phosphorus 3. ASSESSMENT AND PLAN: 1. Hypovolemic shock on presentation due to severe dehydration. Initially he was placed on antibiotics which I have already stopped. His chest x-ray, CT abdomen and pelvis are negative. Influenza A and B and negative as well. Blood pressures is stable. We will monitor for now. 2. Severe dehydration with orthostatic hypotension, as per #1. Apparently this patient was found on the floor at home and his systolic blood pressure was in the 70s with inability to stand up. 3. Hyponatremia, resolved. 4. Electrolyte abnormalities. We will monitor. I will replace today the magnesium. 5. Anemia, multifactorial, mostly nutritional. I will continue with folic acid. He is eating really good. He is status post 1 packed red blood cells. 6. Alcohol use and abuse. This patient has been highly advised against alcohol use. I will continue with daily cessation education. I offered him multiple possibilities including rehab center and detox center and actually I had a conversation with the family and they are willing to take him to a detox and/or rehab center and even to home with them, I believe [place], but today I had a large conversation with the patient and he states that he does not want to go to a rehab center and probably the family is going to be disappointed, but this is not the plan that he has. 7. Deep vein thrombosis prophylaxis with sequential compression devices. 8. Mild rhabdomyolysis, resolved. 9. Protein calorie malnutrition, moderate to severe. Continue with same diet. He is eating really good. 10. Generalized weakness and physical deconditioning, likely chronic and likely related to alcohol use. Physical Therapy and Occupational Therapy working on this patient. cc: Gilbert Thomson MD
[2019-12-01] MEDS: PROTONIX IV SCH (04:51)
[2019-12-01] MEDS: SODIUM CHLORIDE 0.9% INJ SCH (04:51)
[2019-12-01 05:46] LABS: HEMATOCRIT 26.4 % (42.0-52.0); HEMOGLOBIN 8.4 g/dL (14.0-18.0)
[2019-12-01 06:06] LABS: MAGNESIUM 1.7 mg/dL (1.5-2.7); PHOSPHORUS 3.7 mg/dL (2.7-4.5)
[2019-12-01 06:12] LABS: AGAP 10; ALBUMIN 2.2 g/dL (3.5-5.0); ALKALINE PHOSPHATASE 55 U/L (32-122); BUN 8 mg/dL (8-22); CALCIUM 8.3 mg/dL (8.8-10.2); CHLORIDE 101 mmol/L (98-107); COSMO 272; CREATININE 0.6 mg/dL (0.7-1.2); ESTIMATED GFR > 60; GLUCOSE 104 mg/dL (70-104); GOT 23 U/L (10-34); GPT 21 U/L (10-44); POTASSIUM 3.4 mmol/L (3.5-5.1); SODIUM 137 mmol/L (136-145); TCO2 26 mmol/L (25-35); TOTAL PROTEIN 4.4 g/dL (6.3-8.3)
[2019-12-01] MEDS ORDERED: KLOR-CON PO ONE (06:50)
[2019-12-01] MEDS: LIBRIUM PO SCH ×2 (08:22→20:09)
[2019-12-01] MEDS: VITAMIN B-1 PO SCH (08:22)
[2019-12-01] MEDS: FOLIC ACID PO SCH ×2 (08:22→20:09)
--- NOTE | 2019-12-01 11:27 | PROGRESS NOTE ---
DATE: 12/01/2019 SUBJECTIVE: This patient is resting comfortably in bed. He does have severe generalized weakness. He needs always assistance to be able to sit up and get up. He is still having generalized tremors. Hemoglobin has been stable. The potassium is a little bit low. I will replace it. I will continue with the same amount of Librium today. OBJECTIVE: Vital Signs: Temperature 98.2, pulse 95, respiratory rate 17, blood pressure 129/87, oxygen saturation 100% on room air. HEENT: Head normocephalic. No trauma. PERRLA. Neck: Supple. No JVD. No masses. Central trachea. Chest: Clear to auscultation. No wheezing. No rales. Abdomen: Soft. He does have some tenderness to palpation at the level of the epigastric area and right upper quadrant. Extremities: No edema. No clubbing. No cyanosis. He has multiple bruises, mostly at the level of the lower extremities. Neurological: The patient is awake, alert. He is answering my questions, but slow. He is still having generalized tremors, mostly at the level of the upper extremities. He is tolerating p.o. LABORATORY: Hemoglobin 8.4, hematocrit 26.4. Sodium 137, potassium 3.4, chloride 101, bicarbonate 26, BUN 8, creatinine 0.6, glucose 104, calcium 8.3, phosphorus 3.7, magnesium 1.7, albumin 2.2. ASSESSMENT AND PLAN: 1. Hypovolemic shock on presentation due to severe dehydration. Initially he was placed on antibiotics, which I have already stopped. His chest x-ray and CT abdomen and pelvis are negative. Influenza A and B are negative as well. Blood pressure is stable. We will monitor for now. Apparently he was found on the floor at home with a systolic blood pressure in the 70s with inability to stand up. 2. Hyponatremia, resolved. 3. Electrolyte abnormalities, I will continue to replace, especially today the potassium. 4. Anemia, multifactorial, mostly nutritional. I will continue with folic acid. He is eating really good. He is status post unit of 1 packed red blood cells. 5. Alcohol use and abuse. This patient has been highly advised against alcohol use. I will continue with daily cessation education. He does have good family support, and they will need to take him to any rehab center and/or place that specializes in alcohol, but the patient has been refusing, even though he cannot sit up or stand up by himself. 6. Deep vein thrombosis prophylaxis with sequential compression devices. 7. Mild rhabdomyolysis, resolved. 8. Protein calorie malnutrition, moderate to severe. Continue with same diet. The patient is eating good. Likely, this is the result of alcohol abuse for years. 9. Generalized weakness and physical deconditioning, likely chronic, likely related to alcohol use. Physical therapy and occupational therapy working on this patient. He is still having generalized tremors. I will try to control him with Librium. cc: Gilbert Thomson MD
[2019-12-02] MEDS: PROTONIX IV SCH (05:39)
[2019-12-02] MEDS: SODIUM CHLORIDE 0.9% INJ SCH (05:39)
[2019-12-02 06:50] LABS: AGAP 9; BUN 6 mg/dL (8-22); CALCIUM 8.6 mg/dL (8.8-10.2); CHLORIDE 101 mmol/L (98-107); COSMO 269; CREATININE 0.7 mg/dL (0.7-1.2); ESTIMATED GFR > 60; GLUCOSE 93 mg/dL (70-104); POTASSIUM 3.9 mmol/L (3.5-5.1); SODIUM 136 mmol/L (136-145); TCO2 26 mmol/L (25-35)
[2019-12-02] MEDS: FOLIC ACID PO SCH ×2 (08:38→20:21)
[2019-12-02] MEDS: VITAMIN B-1 PO SCH (08:38)
[2019-12-02] MEDS: LIBRIUM PO SCH ×2 (08:38→20:21)
--- NOTE | 2019-12-02 09:07 | PROGRESS NOTE ---
DATE: 12/02/2019 SUBJECTIVE: The patient is resting comfortably in bed. He does have generalized weakness and tremors, especially upper extremities. He is complaining of left ankle pain today, and his left ankle looks more swollen today, so I will ask for an x-ray and also an ultrasound to rule out DVT. OBJECTIVE: Vital Signs: Temperature 97.7 degrees, pulse 89, respiratory rate 17, blood pressure 158/96, oxygen saturation 98 on room air. HEENT: Head normocephalic. No trauma. PERRLA. Neck: Supple. No JVD. No masses. Central trachea. Chest: Clear to auscultation. No wheezing. No rales. Abdomen: Soft. He has some tenderness to palpation at the level of the epigastric area and right upper quadrant. Extremities: Trace lower extremity edema, especially on the left leg. No clubbing, no cyanosis. He has multiple bruises, mostly at the level of the lower extremities. Neurological: The patient is awake, alert. He is answering my questions, but slow. He is still having generalized tremors, especially at the level of the upper extremities. He is complaining of pain at the level of the left ankle. LABORATORY DATA: Sodium 136, potassium 3.9, chloride 101, bicarbonate 26, BUN 6, creatinine 0.7, glucose 93, calcium 8.6. ASSESSMENT AND PLAN: 1. Hypovolemic shock on presentation due to severe dehydration. No infection. His chest x-ray and CT abdomen and pelvis are negative. Influenza A and B and negative. Blood pressure is stable. Will continue to monitor for now. Apparently, he was found on the floor at home with a systolic blood pressure in the 70s, with inability to stand up. 2. Hyponatremia, resolved. 3. Electrolyte imbalance, stable. 4. Anemia, multifactorial, mostly nutritional. Continue replacing the folic acid. He is eating really good. He is status post 1 packed red blood cell. 5. Alcohol use and abuse. This patient has been highly advised against alcohol abuse. I will continue with daily cessation education. He is still having generalized tremors, but no signs of confusion. 6. Deep vein thrombosis prophylaxis with sequential compression devices. He is complaining of some left upper extremity pain, especially his left ankle. His left calf looks fine, but I would like to rule out deep venous thrombosis. I will add also, Lovenox to his medication. 7. Mild rhabdomyolysis, resolved. 8. Protein calorie malnutrition, [id number]. Continue with the same diet. The patient is eating good. Likely, this is the result of alcohol abuse for years. 9. Generalized weakness and physical deconditioning, likely chronic. He is still having generalized weakness, which is severe. He needs a lot of help just to stand up. I talked to him about rehab center placement, and today he agreed with that. Today, this patient agreed to go to a rehab center. I have requested an evaluation by the social research assistant. I will continue with the same amount of Librium today, and hopefully tomorrow will decrease it. He seems to be more stable. I will request a lower extremity ultrasound and x-ray of the left lower extremity. cc: Gilbert Thomson MD
--- NOTE | 2019-12-02 10:53 | Diag Imaging Result Doc PS360 ---
ANKLE 2 VIEWS LEFT - 12/02/2019 INDICATION: Pain and swelling TECHNIQUE: COMPARISON: None FINDINGS: Bones are intact and normally aligned. Joint spaces and soft tissues are clear. IMPRESSION: Negative exam. Electronically signed by Steve Crandall 12/02/2019 10:51 AM
[2019-12-03] MEDS: ATIVAN IV PRN (03:54)
[2019-12-03] MEDS: PROTONIX IV SCH (05:35)
[2019-12-03] MEDS: SODIUM CHLORIDE 0.9% INJ SCH (05:35)
[2019-12-03 06:40] LABS: BASO# 0.01 X1000 (0.0-0.2); BASO% 0.3 % (0.0-0.8); EOS# 0.01 X1000 (0.0-0.7); EOS% 0.3 % (0.0-10.0); HEMATOCRIT 29.2 % (42.0-52.0); IMM GRAN# 0.04 X1000 (0.0-0.04); LYMPH# 1.19 X1000 (1.2-3.4); LYMPH% 30.7 % (20.5-51.1); MCH 30.1 PG (27-31); MCHC 30.8 g/dL (33-37); MCV 97.7 FL (81-99); MONO# 0.66 X1000 (0.11-0.59); MPV 11.1 FL (7.4-10.4); NEUT# 1.97 X1000 (1.4-6.5); NEUT% 50.7 % (42.2-75.2); PLT 200 X1000 (130-400); RBC 2.99 XMIL (4.7-6.1); RDW 15.5 % (11.5-14.5); WBC 3.88 X1000 (4.8-10.8)
[2019-12-03 06:44] LABS: AGAP 10; ALBUMIN 2.5 g/dL (3.5-5.0); ALKALINE PHOSPHATASE 48 U/L (32-122); BUN 7 mg/dL (8-22); CHLORIDE 99 mmol/L (98-107); COSMO 266; CREATININE 0.7 mg/dL (0.7-1.2); ESTIMATED GFR > 60; GLUCOSE 91 mg/dL (70-104); GOT 25 U/L (10-34); GPT 18 U/L (10-44); MAGNESIUM 1.4 mg/dL (1.5-2.7); PHOSPHORUS 3.9 mg/dL (2.7-4.5); SODIUM 134 mmol/L (136-145); TCO2 25 mmol/L (25-35); TOTAL BILIRUBIN 1.36 mg/dL (0.20-1.00); TOTAL PROTEIN 5.1 g/dL (6.3-8.3)
[2019-12-03] MEDS ORDERED: MAGNESIUM SULFATE 2 GM/S.W.I. 2 GM/50 ML IVPB IV ONE (07:12)
[2019-12-03] MEDS: VITAMIN B-1 PO SCH (09:29)
[2019-12-03] MEDS: LIBRIUM PO SCH ×3 (09:29→17:08)
[2019-12-03] MEDS: FOLIC ACID PO SCH ×2 (09:29→21:20)
[2019-12-03] MEDS: LOVENOX SUBQ SCH (09:30)
--- NOTE | 2019-12-03 10:16 | PROGRESS NOTE ---
DATE: 12/03/2019 SUBJECTIVE: This patient is lying comfortably in bed. It looks like he has been a little bit confused on and off. He answered all my questions. His answers are slow though and he does have generalized weakness with the possibility of alcoholic neuropathy. Family members at the bedside and we had a long discussion about further treatment and management. OBJECTIVE: Vital Signs: Temperature 97.7 degrees, pulse 110, respiratory rate 22, blood pressure 112/72, oxygen saturation 100% on room air. HEENT: Head normocephalic. No trauma. PERRLA. Neck: Supple. No JVD. No masses. Central trachea. Chest: Clear to auscultation. No wheezing. No rales. Abdomen: Soft. He has some tenderness to palpation at the level of the epigastric area and right upper quadrant. Extremities: Trace lower extremity edema, especially in the left leg. No clubbing. No cyanosis. He has multiple bruises, mostly at the level of the lower extremities. Neurological Examination: The patient is awake, alert. He is answering my questions but slow. He is still having generalized tremors, especially in the left upper extremity. As per the nurse, he has been confused on and off during the night but not at this time with me. Laboratory: WBC 3.8, hemoglobin 9, hematocrit 29.2, platelets 200,000. Sodium 134, potassium 4, chloride 99, bicarbonate 25, BUN 7, creatinine 0.7, magnesium 1.4. AST 25, ALT 18, alkaline phosphatase 48, albumin 2.5. ASSESSMENT AND PLAN: 1. Hypovolemic shock on presentation due to severe dehydration. No infection has been localized. His chest x-ray and CT scan of the abdomen and pelvis were negative. Influenza A and B negative. Blood pressure is stable. Apparently, he was found on the floor at home with a systolic blood pressure in the 70s and inability to stand up. 2. Hyponatremia, resolved. 3. Electrolyte imbalance, stable. I will replace the magnesium today. 4. Anemia, multifactorial, mostly nutritional. Continue replacing the folic acid. He is eating really good. He is status post 1 unit of packed red blood cells. 5. Alcohol use and abuse. This patient has been highly advised every day against alcohol use. I will continue with daily cessation education. He is still having generalized tremors but no signs of withdrawal. As per the nurse, he was a little bit confused early in the morning but not during my evaluation. He was able to recognize family members at the bedside and he was answering my questions really slow though. I will get a CT of the head to rule out any other problems and/or previous stroke. 6. Deep vein thrombosis prophylaxis with sequential compression devices and also Lovenox. He was complaining of left lower extremity pain, especially his left ankle. I communicated with the vascular lab and it looks like he does not have any deep venous thrombosis and the ankle x-ray is negative. 7. Mild rhabdomyolysis on presentation, resolved. 8. Protein calorie malnutrition, moderate to severe. Continue with the same diet. This patient is eating good and I will continue replacing the folic acid. I will put him on multivitamins as well. 9. Generalized weakness and physical deconditioning. Probably, this is chronic. Likely, this is related to alcohol use. His generalized weakness is quite severe. We have been talking about rehabilitation center placement before going to an alcohol rehabilitation center. They have requested the possibility of going to [place] so I contacted a rehabilitation center from there. The patient is willing to go for rehabilitation. 10. I do believe this patient can go for rehabilitation in 1 or 2 days. I will stop the Librium that he has been taking 25 mg every 12 hours and I will put him on Librium 3 times a day 10 mg to see how he does, pending CT scan of the head. 11. Today, they are going to meet with one of the rehabilitation centers at 10 a.m. Hopefully, like I said, this patient can go to a rehabilitation center in 1 or 2 days and we need to taper down slowly the Librium. cc: Gilbert Thomson MD MTDD
--- NOTE | 2019-12-03 10:57 | Diag Imaging Result Doc PS360 ---
EXAM: CT HEAD W/O CONTRAST 12/03/2019 HISTORY: encephalopathy TECHNIQUE: This exam was performed using automated exposure control, adjustment of mA or kV according to patient size, and/or use of iterative reconstruction technique. COMMENT: There is no evidence of mass effect, bleed, or abnormal extra-axial fluid collection. The calvarium is intact. The visualized paranasal sinuses are clear. There are no previous studies available for comparison. IMPRESSION: No evidence of acute disease. Electronically signed by Benjamin Vazquez 12/03/2019 10:55 AM
[2019-12-03] MEDS: CENTRUM SILVER PO SCH (13:01)
[2019-12-04] MEDS: PROTONIX IV SCH (05:58)
[2019-12-04] MEDS: SODIUM CHLORIDE 0.9% INJ SCH (05:58)
[2019-12-04 06:25] LABS: AGAP 11; BUN 8 mg/dL (8-22); CALCIUM 9.3 mg/dL (8.8-10.2); CHLORIDE 100 mmol/L (98-107); COSMO 270; CREATININE 0.6 mg/dL (0.7-1.2); ESTIMATED GFR > 60; GLUCOSE 92 mg/dL (70-104); MAGNESIUM 1.4 mg/dL (1.5-2.7); PHOSPHORUS 4.6 mg/dL (2.7-4.5); POTASSIUM 3.8 mmol/L (3.5-5.1); SODIUM 136 mmol/L (136-145); TCO2 25 mmol/L (25-35)
[2019-12-04] MEDS: FOLIC ACID PO SCH ×2 (08:40→20:51)
[2019-12-04] MEDS: CENTRUM SILVER PO SCH (08:40)
[2019-12-04] MEDS: VITAMIN B-1 PO SCH (08:40)
[2019-12-04] MEDS: LIBRIUM PO SCH ×3 (08:40→16:18)
[2019-12-04] MEDS: LOVENOX SUBQ SCH (08:41)
[2019-12-04] MEDS ORDERED: MAGNESIUM SULFATE 2 GM/S.W.I. 2 GM/50 ML IVPB IV ONE (15:00)
--- NOTE | 2019-12-04 15:30 | PROGRESS NOTE ---
DATE: 12/04/2019 SUBJECTIVE: Patient reports feeling fine. Denies any complaints at this time. He is a little bit slow in his speech, but his speech is coherent. He is oriented to person and place. OBJECTIVE: Vital Signs: Temperature 98.2 degrees, heart rate 113, respiratory rate 13, blood pressure 111/73. O2 saturation 99% on room air. General: This is an chronically ill-appearing and malnourished 44-year-old male lying in bed in no acute distress. Cardiovascular: S1, S2 heard. No murmurs, gallops or rubs. Regular rate and rhythm. Respiratory: Clear bilaterally to auscultation. No work of breathing or using accessory muscles. Abdomen: Soft. Mild tenderness to palpation in the epigastric area, but no signs of peritoneal irritation. Bowel sounds present. No organomegaly. Extremities: Trace lower extremity edema in both legs mostly on the left, but no clubbing or cyanosis noted. Multiple bruises mostly at the level of the lower extremities. Neurological: Patient is alert and awake. He is slow answering my questions. He has mild tremors in both hands. He has confusion on and off as per nursing staff. LABORATORY DATA: There BMP from today is completely normal except magnesium that is 1.4. ASSESSMENT AND PLAN: 1. Hypovolemic shock on presentation due to the severe dehydration; that condition is stable. 2. Hyponatremia resolved. 3. Electrolyte imbalance. Magnesium is low today. We are going to replenish today. 4. Anemia of chronic disease. Hemoglobin is 9.0 from yesterday. We will continue to monitor. 5. Alcohol use and abuse. Patient advised to stop drinking alcohol. He has been a little bit confused, but I think it could be secondary to alcohol consumption and his cognitive impairment. We will continue to monitor. 6. Protein calorie malnutrition. We will continue with diet. His appetite is getting better. We will continue with multivitamins as well. 7. General weakness with physical deconditioning. We are awaiting for a rehab bed. 8. Disposition: Continue to monitor this patient closely. cc: Enmanuel Alonzo MD
[2019-12-05] MEDS: PROTONIX IV SCH (05:50)
[2019-12-05 05:55] LABS: AGAP 10; ALBUMIN 2.6 g/dL (3.5-5.0); BUN 6 mg/dL (8-22); CALCIUM 8.8 mg/dL (8.8-10.2); CHLORIDE 101 mmol/L (98-107); COSMO 270; CREATININE 0.6 mg/dL (0.7-1.2); ESTIMATED GFR > 60; GLUCOSE 104 mg/dL (70-104); MAGNESIUM 1.9 mg/dL (1.5-2.7); PHOSPHORUS 4.5 mg/dL (2.7-4.5); POTASSIUM 3.8 mmol/L (3.5-5.1); SODIUM 136 mmol/L (136-145); TCO2 25 mmol/L (25-35)
[2019-12-05] MEDS: VITAMIN B-1 PO SCH (10:05)
[2019-12-05] MEDS: FOLIC ACID PO SCH ×2 (10:05→20:53)
[2019-12-05] MEDS: LIBRIUM PO SCH ×3 (10:05→18:31)
[2019-12-05] MEDS: CENTRUM SILVER PO SCH (10:05)
[2019-12-05] MEDS: LOVENOX SUBQ SCH (10:05)
--- NOTE | 2019-12-05 17:56 | PROGRESS NOTE ---
DATE: 12/05/2019 SUBJECTIVE: Patient reports feeling fine. Actually, he reports that he is eating better, and actually feeding at the time of my examination. No other complaints noted. OBJECTIVE: Vital Signs: Temperature 99.3 degrees, heart rate 67, respiratory rate 18, blood pressure 139/95, and O2 saturation 100% on room air. General: This is a chronically ill appearing, malnourished 45-year-old male lying in bed in no acute distress. Cardiovascular: S1, S2 heard. No murmurs, gallops, or rubs. Regular rate and rhythm. Respiratory: Clear bilaterally to auscultation. No work of breathing or using accessory muscles. Abdomen: Soft. Nontender to palpation. Bowel sounds present. No organomegaly. Extremities: No clubbing or cyanosis. Trace lower extremity edema on both lower extremities mostly on the left. Multiple bruits noted at the level of the lower extremities as well. Neurological: Patient is alert, awake, and a little bit slow answering my questions, but his speech is coherent. Mild tremors in both hands. He has confusion on and off still as per nursing staff. LABORATORY DATA: Reviewed. ASSESSMENT AND PLAN: 1. Hypovolemic shock on presentation due to severe dehydration. Stable. 2. Hyponatremia resolved. 3. Electrolyte imbalance, resolved. 4. Anemia of chronic disease. Hemoglobin continues to be stable. We will continue to monitor CBC. 5. Alcohol use and abuse. Patient has been advised to stop drinking alcohol. 6. Protein-calorie malnutrition. Patient will continue with diet supplements. His appetite is getting better. 7. Generalized weakness. Physical deconditioning. Aware. Patient working with physical therapy. 8. Disposition. As per social psychologist, patient will have a rehab bed tomorrow. cc: Enmanuel Alonzo MD
[2019-12-05] MEDS: LOPRESSOR IV SCH (18:32)
[2019-12-05] MEDS: ATIVAN IV PRN (22:44)
[2019-12-06] MEDS: LOPRESSOR IV SCH ×3 (00:01→12:39)
[2019-12-06 06:13] LABS: AGAP 10; ALBUMIN 2.7 g/dL (3.5-5.0); BUN 9 mg/dL (8-22); CHLORIDE 103 mmol/L (98-107); COSMO 273; CREATININE 0.7 mg/dL (0.7-1.2); ESTIMATED GFR > 60; GLUCOSE 102 mg/dL (70-104); MAGNESIUM 1.7 mg/dL (1.5-2.7); PHOSPHORUS 4.2 mg/dL (2.7-4.5); POTASSIUM 3.7 mmol/L (3.5-5.1); SODIUM 137 mmol/L (136-145); TCO2 24 mmol/L (25-35)
[2019-12-06] MEDS: PROTONIX IV SCH (06:32)
[2019-12-06] MEDS: SODIUM CHLORIDE 0.9% INJ SCH (06:32)
--- NOTE | 2019-12-06 08:01 | DISCHARGE SUMMARY ---
ADMISSION DATE: 11/25/2019 DISCHARGE DATE: 12/06/2019 DISCHARGE DIAGNOSES: 1. Hypovolemic shock on presentation due to severe dehydration, resolved. 2. Hyponatremia, resolved. 3. Electrolyte imbalance, resolved. 4. Anemia of chronic disease, stable. 5. Alcohol use and abuse. 6. Protein-calorie malnutrition. 7. Generalized weakness. CONSULTATIONS: None. PROCEDURES: 1. Chest x-ray done on admission showed no acute disease. 2. CT of the chest, abdomen, and pelvis showed no evidence of acute disease. 3. Abdominal ultrasound showed nonvisualization of the gallbladder, likely contracted. Unremarkable right upper quadrant ultrasound otherwise. 4. Head CT showed no evidence of acute disease. HOSPITAL COURSE: This is a 44-year-old male who has a history of hypertension, as well as chronic alcoholism. He presented to the emergency department complaining of progressive weakness. The patient is a chronic alcoholic and his drink was 2 days before being admitted to the hospital. The patient also described a poor appetite. Initially, ER evaluation showed that the patient was hypotensive and required vasopressors and IV fluids, so he was initially admitted to the intensive care unit. He was placed on multivitamins, IV fluids, pressors, and hyponatremia starting getting better slowly. He was placed on Ativan for alcohol withdrawal, but hopefully this patient was doing fine. Confusion was getting better. Hemoglobin after we transfused 1 unit of blood has been stable so far. His labs have normalized, so at this point the patient is going to be discharged in stable condition to [facility]. DISCHARGE PHYSICAL EXAMINATION: Vital Signs: Temperature 98.6 degrees, heart rate 109, respiratory rate 17, blood pressure 143/99, and O2 saturation 95% on room air. General: On examination, this is a 44-year-old male, lying in bed, in no acute distress. Cardiovascular: S1, S2 heard. No murmurs, gallops, or rubs. Regular rate and rhythm. Respiratory: Clear bilaterally to auscultation. No work of breathing. Not using accessory muscles. Abdomen: Soft, nontender to palpation. Bowel sounds present. No organomegaly. Extremities: No clubbing, cyanosis, or edema. Peripheral pulses present in both legs. Neurological: The patient is a little bit slow, but answers questions appropriately. Moves 4 extremities. DISCHARGE DISPOSITION: The patient is going to [facility]. MEDICATIONS: 1. Librium 10 mg 1 tablet p.o. 3 times per day. 2. Lovenox 40 mg subcutaneously every 24 hours. 3. Folic acid 1 tablet p.o. b.i.d. 4. Lorazepam 2 mg IV every 6 hours p.r.n. 5. Metoprolol 5 mg IV every 6 hours. 6. Multivitamin 1 tablet p.o. daily. 7. Protonix 40 mg 1 tablet p.o. daily. 8. Thiamine 100 mg 1 tablet p.o. daily. TIME SPENT: The time spent to discharge this patient was 33 minutes. cc: Enmanuel Alonzo MD
[2019-12-06] MEDS: FOLIC ACID PO SCH (09:38)
[2019-12-06] MEDS: CENTRUM SILVER PO SCH (09:38)
[2019-12-06] MEDS: VITAMIN B-1 PO SCH (09:38)
[2019-12-06] MEDS: LIBRIUM PO SCH ×2 (09:38→12:39)
[2019-12-06] MEDS: LOVENOX SUBQ SCH (09:38)
[2019-12-06 12:37] VITALS: BP 112/69
--- NOTE | 2019-12-06 13:45 | Extremity Venous Study ---
PROCEDURE NAME: Venous U/S Bilateral Legs - 12/02/2019 PROCEDURE: Bilateral lower extremity venous duplex, and color flow imaging study using the [employer] vivid E9 Ultrasound System with a 9L-D transducer. [employer] OPERATOR: SHIRLENE Abdi. REFERRING PHYSICIAN: Dr. Coats. INDICATIONS: Bilateral lower extremity pain and edema suggestive of deep venous thrombosis. FINDINGS: The right common femoral vein and its branches, deep and superficial femoral veins were satisfactorily imaged. They had flow through them and were compressible. Right popliteal vein and the deep veins below the right knee were all compressible and had flow through them. The superficial veins of the right lower extremity were compressible throughout their length. The left common femoral vein and its branches, deep and superficial femoral veins were also satisfactorily imaged. They had flow through them and were compressible. Left popliteal vein and the deep veins below the left knee were all compressible and had flow through them. The superficial veins of the left lower extremity were compressible throughout their length. INTERPRETATION: No evidence of acute deep or superficial venous thrombosis of the bilateral lower extremities. cc: MD Gilbert May MD
== END 2019-12-06 14:29 | DRG 871 ==
LOC: P.ED 17:42 → SUATTDRO 17:43 → ICU 17:43 → 1N 11-29 18:26
PROVIDERS: ATTEND Internal Medicine